=== PATIENT | female | born 2000 | race Hispanic/Latino ===

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

== ENCOUNTER 2018-09-21 09:25 | Outpatient (CLI) | payer OTHER ==
--- NOTE | 2018-09-21 11:47 | ULT ---
OB ULTRASOUND GREATER THAN 14 WEEKS COMPLETE: History: Normal first , second trimester. Size and dates, anatomy. FINDINGS: Single intrauterine fetus is noted in breech presentation. The placenta is posterior without overt pl acenta previa. heart rate 138 beats/minute. Amniotic fluid is within normal limits. Cervical le ngth appears unremarkable. anatomy: Visualized spleen, four chamber heart, three vessel cord, stomach, bladder, kidneys, spine, and extremity regions are unremarkable as visualized. biometry: BDP 4.6 cm 20 weeks 0 days HC 17.9 cm 20 weeks 3 days AC 15.2 cm 20 weeks 4 days FL 3.6 cm 21 weeks 3 days IMPRESSION: Single viable intrauterine fetus at 20 weeks 5 days. MINESH: 02-02-19 Estimated weight: 377 grams POS: [facility]
== END 2018-09-21 09:26 | disposition home or self-care (01) ==
LOC: BICULT 09:25
PROVIDERS: ATTEND Family Medicine
DX: Z34.02 Encounter for supervision of normal first pregnancy, second trimester (principal); Z3A.20 20 weeks gestation of pregnancy
CPT/HCPCS: 76805

== ENCOUNTER 2019-02-05 17:12 | Day surgery (SDC) | payer OTHER ==
[2019-02-05 17:52] VITALS: BP 112/70; TEMP 98.4; BMI 39.9
--- NOTE | 2019-02-06 06:03 | SS ---
DATE OF ADMISSION: 02/05/2019 DATE OF DISCHARGE: 02/05/2019 REGULAR PHYSICIAN: Alberto Goodman MD EVALUATING PHYSICIAN: Maurice Vegas MD CHIEF COMPLAINT: Contractions at home. HISTORY OF PRESENT ILLNESS: Ms. Do is a 18-year-old G1, P0, estimated date of confinement of 02/02/2019, who presents complaining of irregular uterine contractions at home every 5-10 minutes since earlier today. She denies ruptured membranes or vaginal bleeding. Her care has been with Dr. Goodman and has been reportedly uncomplicated. PAST MEDICAL HISTORY: None. PAST SURGICAL HISTORY: None. CURRENT MEDICATIONS: vitamins and iron. ALLERGIES: NO KNOWN ALLERGIES. SOCIAL HISTORY: Denies tobacco, alcohol, or drug use. FAMILY HISTORY: Unremarkable. REVIEW OF SYSTEMS: She denies nausea, vomiting, fever, chills, ruptured membranes, or vaginal bleeding. PHYSICAL EXAMINATION: VITAL SIGNS: In triage, her vital signs are stable and she is afebrile. GENERAL: She is in no acute distress. ABDOMEN: Soft, nontender, and gravid. PELVIC: Examination by the labor nurse shows the cervix to be 3 cm dilated, 70% effaced with the vertex at -2. heart rate tracing is stable with spontaneous accelerations. No regular contractions are seen. ASSESSMENT: 1. Forty-week intrauterine . 2. No evidence of active labor at this time. PLAN: The patient is scheduled for induction in 2 days. She was given complete labor precautions and was told to return here once her contractions are every 3-5 minutes or should she break her water. She voiced understanding of her discharge instructions and will follow up with Dr. Goodman for induction as scheduled. Job ID: [id number]
== END 2019-02-05 18:25 | disposition home or self-care (01) ==
LOC: L&D/OP 17:12
PROVIDERS: ATTEND Family Medicine
DX: O47.1 False labor at or after 37 completed weeks of gestation (principal); Z3A.40 40 weeks gestation of pregnancy; Z79.899 Other long term (current) drug therapy
CPT/HCPCS: 99282

== ENCOUNTER 2019-02-05 22:48 | Inpatient (IN) | payer OTHER ==
[~2019-02-05 22:48] MED LIST: Bupivacaine/Epinephrine 0.25% 30 ML VIAL ONE
[2019-02-05] MEDS ORDERED: Lidocaine 1% (PF) 30 ML VIAL SC PRN (23:21)
[2019-02-05] MEDS ORDERED: Acetaminophen 500 MG TAB PO PRN (23:21)
[2019-02-05] MEDS ORDERED: Promethazine HCl 25 MG/ML VIAL IM PRN (23:21)
[2019-02-05] MEDS ORDERED: HYDROcodone/Acetaminophen 5/325 mg Tablet PO PRN ×2 (23:21)
[2019-02-05] MEDS ORDERED: Ondansetron PF 4 MG/2 ML Vial IVP PRN (23:21)
[2019-02-05] MEDS ORDERED: NS / Oxytocin 40 units/1000ml 1,000 ML IV PRN (23:21)
[2019-02-05] MEDS ORDERED: Ibuprofen 800 MG TAB PO PRN (23:21)
[2019-02-05] MEDS ORDERED: Zolpidem Tartrate 5 MG TAB PO PRN (23:21)
[2019-02-05] MEDS ORDERED: Meperidine HCl/PF 25 MG/ML VIAL IM/IV PRN (23:21)
--- NOTE | 2019-02-05 23:29 | PDOC.LDHP ---
Labor and Delivery H&P Chief complaint: contractions HPI: 18 yo LAF seen earlier now here c/o UCs q 2-3 mins. Denies bleeding or SROM. Current gestational age (weeks): 40 Due date: 02/02/19 Dating criteria: last menstrual period Grav: 1 Para: 0 OB History Details: PNC with Dr. Goodman w/o problems. Current complications: none Abnormal US findings: No Past Medical History: none Current medications: pre-cristofer vitamins, iron Previous surgical history: none Allergies/Adverse Reactions: Allergies Allergy/AdvReac Type Severity Reaction Status Date / Time No Known Allergies Allergy Unverified 02/05/19 17:46 Social history: none - Physical Exam Vital signs reviewed and normal: yes General: breathing through contractions Heart: RRR Lungs: CTAB Abdomen: gravid Extremeties: trace edema FHT: category 1 [place] contractions every: q 2-3 mins - Vaginal Exam cm dilated: 4 Effacement: 90% Station: -1 - OB Labs GBS: negative (pt. does not report being told she needed ABX in labor) - Assessment L&D Assessment: term patient in labor - Plan Plan: admit to L&D, labor augmentation if indicated (Dr. Goodman to be notified of admit), informed consent obtained, anesthesia consult for pain management
[2019-02-05] MEDS ORDERED: Lactated Ringer's 1,000 ML IV SCH (23:30)
[2019-02-05] MEDS ORDERED: NS w/ Oxytocin 10 units 500 ML IV SCH (23:30)
[2019-02-05 23:59] LABS: Hemoglobin 12.1 g/dL (12.0-16.0); Mean Corpuscular HGB CONC 34.5 g/dL (32.0-36.0); Mean Corpuscular Hemoglobin 30.1 pg (25.0-35.0); Mean Corpuscular Volume 87.2 fL (78.0-98.0); Mean Platelet Volume 7.1 fL (7.4-10.4); Platelet Count 243 thou/uL (130-400); RBC Distribution Width 13.4 % (11.5-14.5); Red Blood Cell (RBC) Count 4.02 mill/uL (4.00-5.20)
[2019-02-06 00:40] LABS: Syphilis Antibody Nonreactive (Nonreactive); Syphilis Antibody Index 0.12 S/CO (<1.00 Non-Reactive)
[2019-02-06 00:42] VITALS: BMI 39.9
[2019-02-06] MEDS: Lactated Ringer's 1,000 ML IV SCH ×2 (01:02→05:47)
[2019-02-06 01:29] LABS: HBSAg Index 0.35 S/CO (0-0.99); Hep B Surf Ag Non-Reactive S/CO (NonReactive)
[2019-02-06] MEDS: Butorphanol Tartrate 1 MG/ML VIAL SLOW IVP PRN ×2 (02:12→04:29)
[2019-02-06] MEDS ORDERED: Fentanyl 4 mcg/Bup 0.1% Cadd 100 ML ONE (04:51)
[2019-02-06] MEDS ORDERED: Ondansetron PF 4 MG/2 ML Vial IVP PRN ×2 (07:07→11:18)
[2019-02-06] MEDS ORDERED: Promethazine HCl 25 MG/ML VIAL IM PRN ×2 (07:07→11:18)
[2019-02-06] MEDS ORDERED: ePHEDrine/0.9% NaCl/PF SYRINGE 50 mg/10 ml SLOW IVP PRN (07:07)
[2019-02-06] MEDS ORDERED: Acetaminophen 325 MG TAB PO PRN (07:07)
[2019-02-06] MEDS ORDERED: Naloxone HCl 0.4 mg/ml Vial IVP PRN ×2 (07:07)
[2019-02-06] MEDS ORDERED: diphenhydrAMINE 50 MG/ML VIAL IVP PRN (07:07)
[2019-02-06] MEDS ORDERED: Lactated Ringer's 500 ML IV PRN (07:07)
[2019-02-06] MEDS ORDERED: Communication Order-Pharmacy FS SCH (07:15)
[2019-02-06] MEDS ORDERED: Fentanyl 4 mcg/Bupivacaine 0.1% Cassette 100 ML EPIDURAL SCH (07:15)
[2019-02-06] MEDS ORDERED: Milk Of Magnesia 30 ML UDCUP PO PRN (11:18)
[2019-02-06] MEDS ORDERED: diphenhydrAMINE 25 MG CAP PO PRN (11:18)
[2019-02-06] MEDS ORDERED: Benzocaine-Menthol 82.5 ML CAN TOP PRN (11:18)
[2019-02-06] MEDS ORDERED: Lanolin Ointment 7 GM TUBE TOP PRN (11:18)
[2019-02-06] MEDS ORDERED: NS / Oxytocin 40 units/1000ml 1,000 ML IV SCH (11:18)
[2019-02-06] MEDS ORDERED: HYDROcodone/Acetaminophen 5/325 mg Tablet PO PRN ×2 (11:18)
[2019-02-06] MEDS ORDERED: Preparation H Ointment 28 GM TUBE PR PRN (11:18)
[2019-02-06] MEDS ORDERED: Bisacodyl 10 MG SUPP PR PRN (11:18)
[2019-02-06] MEDS ORDERED: Docusate Calcium (SURFAK) 240 MG CAP PO SCH (12:15)
[2019-02-06] MEDS ORDERED: Prenatal Vitamin 1 TAB PO SCH (12:15)
[2019-02-06] MEDS: Ibuprofen 800 MG TAB PO SCH ×2 (15:32→21:46)
[2019-02-06] MEDS: Ferrous Sulfate 325 MG TAB PO SCH (16:55)
[2019-02-06] MEDS: Docusate Calcium (SURFAK) 240 MG CAP PO SCH (21:46)
[2019-02-07] MEDS: Ibuprofen 800 MG TAB PO SCH ×2 (06:01→13:11)
[2019-02-07 06:02] LABS: Hemoglobin 11.3 g/dL (12.0-16.0); Mean Corpuscular Hemoglobin 29.3 pg (25.0-35.0); Mean Corpuscular Volume 88.8 fL (78.0-98.0); Mean Platelet Volume 7.3 fL (7.4-10.4); Platelet Count 215 thou/uL (130-400); RBC Distribution Width 13.6 % (11.5-14.5); Red Blood Cell (RBC) Count 3.86 mill/uL (4.00-5.20); White Blood Cell (WBC) Count 12.7 thou/uL (4.8-10.8)
[2019-02-07] MEDS: Docusate Calcium (SURFAK) 240 MG CAP PO SCH (08:39)
[2019-02-07] MEDS: Prenatal Vitamin 1 TAB PO SCH (08:39)
[2019-02-07] MEDS: Ferrous Sulfate 325 MG TAB PO SCH ×2 (08:40→16:09)
[2019-02-08] MEDS: Docusate Calcium (SURFAK) 240 MG CAP PO SCH ×2 (06:15→10:20)
[2019-02-08] MEDS: Ibuprofen 800 MG TAB PO SCH ×3 (06:15→14:51)
[2019-02-08 07:54] VITALS: BP 97/55; TEMP 98.8
[2019-02-08] MEDS: Prenatal Vitamin 1 TAB PO SCH (10:20)
[2019-02-08] MEDS: Ferrous Sulfate 325 MG TAB PO SCH (10:20)
== END 2019-02-08 16:06 | disposition home or self-care (01) | DRG 807 ==
LOC: L&D/OP 22:48 → L&D 23:31 → 3SW 02-06 12:50
PROVIDERS: ADMIT Family Medicine; ATTEND Family Medicine
PROC: 10E0XZZ Delivery of Products of Conception, External Approach (ICD-10-PCS; principal; 2019-02-06)
PROC: 0KQM0ZZ Repair Perineum Muscle, Open Approach (ICD-10-PCS; 2019-02-06)
DX: O48.0 Post-term pregnancy (principal); Z37.0 Single live birth; Z3A.40 40 weeks gestation of pregnancy; O70.1 Second degree perineal laceration during delivery
CPT/HCPCS: 36415; 51702; 85027; 86780; 86850; 86900; 86901; 87340; 99285; J0595; J2001